=== PATIENT | female | born 1945 | race Two or more races ===

== ENCOUNTER → 2017-08-20 12:03 | Outpatient (CLI) | payer OTHER | END | disposition home or self-care (01) | LOC: RAD 12:03 | DX: M25.562 Pain in left knee (principal) ==

== ENCOUNTER 2024-06-22 17:20 | Emergency (ER) | payer OTHER ==
[~2024-06-22] VITALS: Ht 170.2 cm; Wt 57.6 kg
[2024-06-22] MEDS ORDERED: PEPCID AC20 MG (17:32)
[2024-06-22] MEDS ORDERED: PROTONIX20 MG PO (17:33)
[2024-06-22] MEDS ORDERED: JANUVIA100 MG PO (17:33)
[2024-06-22 18:11] LABS: HEMATOCRIT 35.3 % (36.0-45.00); HEMOGLOBIN 11.4 g/dL (12.0-15.00); MEAN CELL VOLUME 83.2 fL (80.00-100.00); MEAN CORPUSCULAR HGB CONC 32.4 g/dl (32.0-36.0); PLATELET COUNT 295 K/uL (150-450); RED BLOOD COUNT 4.24 M/uL (4.00-6.00); RED CELL DISTRIBUTION WIDTH 14.3 % (11.5-14.5)
[2024-06-22 18:25] LABS: INR 1.01; PARTIAL THROMBOPLASTIN TIME 23.9 SECONDS (22.0-34.0)
[2024-06-22 18:33] LABS: ALBUMIN 3.9 gm/dL (3.4-5.0); BILIRUBIN TOTAL 0.67 mg/dL (0.3-1.2); CALCIUM 9.2 mg/dL (8.5-10.1); CREATININE SERUM 0.96 mg/dL (0.55-1.02); GFR 55.92; POTASSIUM 3.98 mEq/L (3.5-5.1); TOTAL PROTEIN 7.9 gm/dL (6.4-8.2)
== END 2024-06-22 20:56 | disposition home or self-care (01) ==
LOC: ER 17:22
PROVIDERS: General Practice
DX: K92.1 Melena (principal); Z91.041 Radiographic dye allergy status; Z88.0 Allergy status to penicillin; E11.9 Type 2 diabetes mellitus without complications; Z79.84 Long term (current) use of oral hypoglycemic drugs